=== PATIENT | female | born 1960 | race Caucasian/White ===

== ENCOUNTER 2024-12-11 14:09 | Emergency (ER) | payer OTHER ==
[~2024-12-11] VITALS: Ht 162.6 cm; Wt 64.0 kg
[2024-12-11 14:18] VITALS: TEMP 98.7
--- NOTE | 2024-12-11 14:34 | Physician Documentation ---
History of Present Illness ~ Chief Complaint: Stroke Alert Stated Complaint: NUMBNESS Time Seen by MD: 14:32 HPI 64-year-old female, history of epilepsy, who presents with left-sided numbness and dizziness She tells me that at around 11:00 a.m., approximately 3-1/2 hours ago, she started to feel lightheaded. She thought maybe her sugar level was low or she needed to eat something. However, she then developed left-sided numbness at around 12:00 a.m., 2-1/2 hours ago. She reports feeling numbness in the left side of her face as well as her left arm. She denies any left side leg numbness She tells me that her legs felt unsteady, but denies any significant focal weakness. She denies having a headache. She denies visual changes. No significant difficulty speaking. No fevers or recent infectious symptoms. Medication Reconciliation Allergies: Coded Allergies: No Known Allergies (Unverified , 12/11/24) Review of Systems Constitutional: Denies: fever Neurological: Reports: left sided numbness Physical Exam Vital Signs: Temperature: 98.7, Source: Temporal, Heart Rate: 72, Respiratory Rate: 16, BP: 172/86, Pulse Oximetry: 99, Weight: 64.040 Oxygen Flow Rate: 0 General Appearance General: This is a pleasant and overall well-appearing middle-aged woman, at bedside HEENT: Atraumatic, oropharynx appears moist Heart: Regular rate and rhythm, normal-appearing peripheral perfusion Lungs: normal work of breathing, normal oxygen saturation on room air Neuro: Alert and oriented, speaks slowly but clearly. No facial droop. She does have diminished sensation on the left side of her face compared to the right. Extraocular movements are intact. Grossly normal strength in all 4 extremities. She does report slightly diminished sensation in the left arm and hand. Normal sensation to the left leg. Psychiatric: Calm and cooperative with exam Progress Results/Orders Results/Orders Orders - SANDRA MADDEN MD Monitor (12/11/24 14:28) 2 Large Bore Ivs (12/11/24 14:28) Chest,Single View (12/11/24 14:28) Accucheck (12/11/24 14:28) Ct Stroke Alert (12/11/24 14:28) [place] Prov.Neuro Consult (12/11/24 14:28) Cta Neck/Head (12/11/24 14:40) Completed Orders - SANDRA MADDEN MD Cbc/Diff (12/11/24 14:28) Electrocardiogram (12/11/24 14:28) Chest,Single View (12/11/24 14:28) Ct Stroke Alert (12/11/24 14:28) BMP (12/11/24 14:28) PTT (12/11/24 14:28) Pt Inr (12/11/24 14:28) Iohexol 350mg/Ml 100ml (Omnipaque 350mg/ (12/11/24 14:34) Cta Neck/Head (12/11/24 14:40) Urinalysis, Cult If Indicated (12/11/24 14:55) Vital Signs 12/11/24 12/11/24 12/11/24 12/11/24 14:18 14:37 15:00 15:08 Temp 98.7 Pulse 72 64 56 63 Resp 16 14 20 17 B/P (MAP) 172/86 156/84 (108) 156/74 154/73 (100) Pulse Ox 99 97 99 99 O2 Flow Rate 0 0 12/11/24 12/11/24 12/11/24 12/11/24 15:15 15:20 15:29 16:00 Pulse 58 59 55 Resp 15 11 12 B/P (MAP) 148/79 146/73 142/80 (100) Pulse Ox 99 99 100 12/11/24 12/11/24 16:45 17:10 Pulse 57 57 Resp 12 11 B/P (MAP) 152/78 (102) 145/75 Pulse Ox 97 97 Laboratory Tests Test 12/11/24 14:27 12/11/24 14:55 12/11/24 16:15 Glucometer 102 White Blood Count 8.7 Red Blood Count 4.43 Hemoglobin 14.1 Hematocrit 41.3 Mean Corpuscular Volume 93.2 Mean Corpuscular Hemoglobin 31.7 H Mean Corpuscular Hemoglobin Concent 34.0 Red Cell Distribution Width 12.9 Platelet Count 240 Mean Platelet Volume 7.9 Neutrophils (%) (Auto) 68.9 Lymphocytes (%) (Auto) 23.9 Monocytes (%) (Auto) 5.8 Eosinophils (%) (Auto) 0.7 Basophils (%) (Auto) 0.7 Neutrophils # (Auto) 6.0 Lymphocytes # (Auto) 2.1 Monocytes # (Auto) 0.5 Eosinophils # (Auto) 0.1 Basophils # (Auto) 0.1 CBC Comment Prothrombin Time 9.8 INR International Normalized Ratio 1.0 Activated Partial Thromboplast Time 27 Coagulation Comments Sodium Level 135 Potassium Level 4.3 Chloride Level 101 Carbon Dioxide Level 26.3 Anion Gap 8 Blood Urea Nitrogen 15 Creatinine 0.98 H Estimated GFR/1.73 m2 57 BUN/Creatinine Ratio 15.3 Glucose Level 101 Calcium Level 9.1 Albumin 3.9 Chemistry Comments Urine Specimen Description Voided Urine Color Straw Urine Clarity Clear Urine pH 7.0 Urine Specific [place] <=1.005 Urine Protein Negative Urine Glucose (UA) Negative Urine Ketones Negative Urine Occult Blood Negative Urine Nitrite Negative Urine Bilirubin Negative Urine Urobilinogen 0.2 Urine Leukocyte Esterase Negative Urine Culture Indicated Not ind Volume Urine Centrifuged 10 ml Urine Comment EKG/XRAY/CT/US/VASC/MRI EKG : Additional Comment I personally interpreted the EKG and this shows: Sinus rhythm, rate 58, QTC 415, unremarkable EKG Chest X-Ray : Additional Comments I personally interpreted the x-ray, and it shows: No focal consolidation, pulmonary edema, or mediastinal widening CT : Impression I personally interpreted the CT scan of the head: This shows no acute hemorrhage or mass CTA head and neck: Radiology report shows no large vessel occlusion or aneurysm Consults/PCP Consults/PCP : Additional Comment Consult: Stroke neurology was emergently consulted after my initial evaluation of the patient. They did evaluate the patient and I spoke to Dr. Medrano. He feels this is unlikely to be a stroke, recommends a normal workup, and if she continues to have symptoms with a negative workup then admission for MRI Medical Decision Making Additional Information The patient presents with symptoms of dizziness and numbness. She I had a full stroke workup that did not show any obvious evidence of a stroke, large vessel occlusion, or other abnormality. No evidence of infection or UTI. Stroke Neurology was consulted and did not recommend admission for an MRI if her symptoms improved, given that her symptoms seemed less consistent with a stroke. On re-evaluation, she was feeling much improved. I had a long discussion with the patient and her . She does report having a lot of stress recently and wonders if this could be a stress reaction manifestation. This definitely seems possible. Stroke or TIA seems less likely. Given her significant improvement, it seems reasonable for her to be discharged home. She was given home care instructions, outpatient follow up, and strict return precautions Departure Time of Disposition: 16:50 Disposition: 01 HOME / SELF CARE / HOMELESS Impression: Primary Impression: Abnormal feeling Condition: Improved Discharge Instructions: Managing Stress, Adult Referrals: NO PRIMARY CARE PROVIDER (PCP) Education Educated: Patient, Family Educated regarding: diagnosis, treatment, need for follow up Critical Care Note Critical Care Note Critical Care Note The very real possibility of a deterioration of this patient's condition required the highest level of my preparedness for sudden, emergent intervention. I provided critical care services, which included medication orders, frequent reevaluations of the patient's condition and response to treatment, ordering and reviewing test results, and discussing the case with various consultants. Excludes time spent performing separately billable procedures. The critical care time associated with the care of the patient was 45 minutes in the management of possible acute stroke within the window for thrombolytics Signature Scribe Signature: toby Attestation: SANDRA Campbell MD Dec 11, 2024 14:34
--- NOTE | 2024-12-11 14:51 | RADIOLOGY REPORT ---
Exam: CT CT STROKE ALERT History: Stroke Alert Technique: [address] images through the posterior fossa and the supratentorial compart ment were acquired without contrast and imaged using soft tissue and bone algorithms. RADIATION DOSE: DLP 931.44 mGy.cm; CTDI vol 53.62 mGy. Comparison: None Findings: There is no evidence of an intracranial hemorrhage, acute large vessel infarct, mass effect, or midli ne shift. There is no significant cerebral atrophy. No significant calcification of the carotid siphons. The calvarium, orbits, paranasal sinuses, sella, middle ears, and mastoids are unremarkable. The superficial soft tissues are within normal limits. Impression: 1. No acute intracranial abnormality.
--- NOTE | 2024-12-11 14:56 | CONSULTATION REPORT ---
History of Present Illness Providers to CC ~ Allergies: Coded Allergies: No Known Allergies (Unverified , 12/11/24) Physical Exam Last Vital Signs Recorded: Temperature: 98.7, Source: Temporal, Heart Rate: 64, Respiratory Rate: 14, BP: 156/84, Pulse Oximetry: 97, Weight: 64.040 Assessment/Plan Additional Plan [place] Neuro Note # Demographics Consult Type: Acute Stroke Level 1 (0-4.5 hrs) Patient Location: Emergency Room First Name: JAIDEN Last Name: PRISCILLA Date of : 1960 Age: 64 Gender: Female Facility: [facility] Time of Initial Page (): 12/11/2024 14:40 First Contact with Site ( Time): 12/11/2024 14:41 # HPI Chief Complaint: - dizziness History: 64 y/o woman presents with dizziness, light-headed. Similar symptoms Monday at work. Today her lips and arms were tingling and numb. Also couldn't think straight. Then started feeling like she was going to pass out. Took her blood pressure which was normal. Drank Gatorade and ate protein, but still f eeling weird. No clear provoking factor but did sleep longer than normal. Onset around 11. # Scores Time of exam and NIHSS (): 12/11/2024 14:46 Level of Consciousness 1a: [0] = Alert; keenly responsive LOC Questions 1b: [0] = Answers both questions correctly LOC Commands 1c: [0] = Performs both tasks correctly Best Gaze 2: [0] = Normal Visual 3: [0] = No visual loss Facial Palsy 4: [0] = Normal symmetrical movements Motor Arm Left 5a: [0] = No drift Motor Arm Right 5b: [0] = No drift Motor Leg Left 6a: [0] = No drift Motor Leg Right 6b: [0] = No drift Limb Ataxia 7: [0] = Absent Sensory 8: [0] = Normal Best Language 9: [0] = No aphasia Dysarthria 10: [0] = Normal Extinction and Inattention 11: [0] = No abnormality NIHSS Total: 0 # PMH-FH-SH Past Medical History: - seizure Medications: Lamcital ER 200 at bedtimes # Data Head CT: - no bleed - preliminarily reviewed by me, please refer to radiology read for official reading # Assessment Impression: - Other dizziness # Plan Thrombolytic/Intervention: NOT IV Thrombolysis or IA Intervention candidate Thrombolytic Exclusion (< 3 hour window): - non-disabling deficit Intraarterial Exclusion: - clinical exam not consistent with presence of large vessel occlusion (LVO), can reconsider if LVO found on vascular imaging Other: - If patient has any neurological deterioration please call me back immediately - I have discussed my recommendations with the referring provider Additional Recommendations: infectious/metabolic/cardiac per ED/Primary. Can consider brain MRI if symptoms of left sided numbness (reported to ED physician) persist. # Logistics Attestation of consult completion: The patient is located at: [facility]. Facility staff participated in the visit. I performed this telemedicine visit from my offsite office utilizing interactive 2 way audio and visual telecommunication technology at the request of the onsite emergency room provider. Total time spent in telemedicine encounter: I spent 14 minutes reviewing cl inical data and/or imaging, obtaining history, examining the patient, communicating with the onsite care team, and in preparation of this report. # Demographics First Name: JAIDEN Last Name: PRISCILLA Facility: [facility] YINKA NUNO MD Dec 11, 2024 14:56
--- NOTE | 2024-12-11 15:00 | RADIOLOGY REPORT ---
EXAM: DI CHEST,SINGLE VIEW HISTORY: Stroke Alert COMPARISON: None TECHNIQUE: Portable upright AP view of the chest was performed. FINDINGS: No pneumothorax, consolidative infiltrates, or pulmonary edema. The heart is not enlarged. There is m ild thoracic dextroscoliosis. There is an ovoid calcification overlying the left glenoid. IMPRESSION: 1. No acute intrathoracic process. 2. Ovoid calcification overlies the left glenoid, and may represent an intra-articular calcific loose body.
[2024-12-11 15:01] LABS: MEAN PLATELET VOLUME 7.9 FL (7.4-10.4); RED CELL DISTRIBUTION WIDTH 12.9 % (11.5-14.5)
--- NOTE | 2024-12-11 15:09 | ELECTROCARDIOGRAPH REPORT ---
[facility] Test Date: 2024-12-11 Test Time: 15:07:33 Pat Name: JAIDEN WELLS Department: [facility]-ER Patient ID: [id number] Room: Gender: F [employer] Education [employer] Professional: : 1960 Requested By: SANDRA MADDEN Order Number: [id number] Reading MD: Measurements Intervals [place] Rate: 58 P: 64 OK: 181 QRS: 41 QRSD: 104 T: 40 QT: 422 QTc: 415 Interpretive Statements Sinus bradycardia Probable left atrial enlargement Please click the below link to view image of tracing.
[2024-12-11 15:16] LABS: APTT 27 SECONDS (22-32); INR 1.0 INR
[2024-12-11 15:19] LABS: CREATININE 0.98 MG/DL (0.40-0.90); TOTAL CARBON DIOXIDE 26.3 MMOL/L (24-32); eCRCL 50 ML/MIN; eGFR 57 ML/MIN
--- NOTE | 2024-12-11 15:24 | RADIOLOGY REPORT ---
EXAM: CT CTA NECK/HEAD INDICATION: left sided numbness EXAM DATE: 12/11/2024 02:53 PM COMPARISON: None TECHNIQUE: A noncontrast dataset was obtained. Subsequently, a volumetric data acquisition of the hea d and neck was obtained during the arterial phase of enhancement. A total of 60 mL of Omnipaque 350 w as administered intravenously. One or more of the following radiation dose reduction techniques were used for this examination: automated exposure control, adjustment of the mA and/or kV according to pa tient size, use of iterative reconstruction technique. 3-D postprocessing is performed by technologist including MIP imaging Determination of the degree of stenosis in the internal carotid arteries is obtained using measureme nts of distal internal carotid diameter (directly or indirectly) as the denominator for stenosis chevy urement. The method utilized is similar to that utilized in the [place] Symptomatic Carotid E ndarterectomy Trial (NASCET) method. If the degree of stenosis is greater than 30%, the actual percen tage stenosis is given in the body of the report. Radiation Dose Information: CT Dose: CTDI volume is 30.6 mGy. Dose-length product is 446.63 mGy*cm Findings: Neck: The aortic arch and great vessels are within normal limits. The common carotid arteri es, carotid bifurcation, internal and external carotid arteries are within normal limits. Vertebral a rteries are within normal limits, with left dominant. No evidence of aneurysm, dissection, or stenosi s. The pharynx and upper airway appear normal with no evidence of stricture or focal lesion. No evidence of cervical lymphadenopathy. The thyroid, submandibular, and parotid glands appear normal. Osseous structures and lung apices appear unremarkable. Brain: Intracranial Anterior Circulation: The RIGHT anterior circulation including the right internal carotid artery, middle cerebral artery, and anterior cerebral artery demonstrates no abnormality. Th e LEFT anterior circulation including the left internal carotid artery, middle cerebral artery, and a nterior cerebral artery demonstrates no abnormality. The anterior communicating artery is unremarkabl e. No posterior communicating arteries are identified. Vertebrobasilar Circulation: The basilar artery is unremarkable. The RIGHT posterior cerebral artery, superior cerebellar artery, and posterior inferior cerebellar artery demonstrate no abnormality. The LEFT posterior cerebral artery, superior cerebellar artery, and posterior inferior cerebellar artery demonstrate no abnormality. Other: The visualized dural sinuses and intradural venous system are unremarkable. No evidence of int racranial mass, mass effect, or abnormal enhancement. The skull base, calvaria, orbits, and overlying soft tissues are intact. The remaining paranasal sinuses, mastoid air cells, and middle ear cavities are clear and well aerated. Partial opacification of bilateral maxillary sinuses, [id number]. Impression: 1. No evidence of stenosis, aneurysm, or dissection.
[2024-12-11 16:38] LABS: LEUKOCYTE ESTERASE ,URINE NEGATIVE (Neg); NITRITES, URINE NEGATIVE (Neg); OCCULT BLOOD,URINE NEGATIVE (Neg)
[2024-12-11 16:41] LABS: UA COLLECTION TYPE VOIDED
[2024-12-11 17:10] VITALS: BP 145/75; PULSE 57; RESP 11; O2SAT 97
== END 2024-12-11 17:18 | disposition home or self-care (01) ==
LOC: ER 14:10
DX: R20.2 Paresthesia of skin (principal); R42 Dizziness and giddiness; R00.1 Bradycardia, unspecified; G40.909 Epilepsy, unspecified, not intractable, without status epilepticus
CPT/HCPCS: 36415; 70450; 70496; 70498; 71045; 80048; 81003; 82948; 85025; 85610; 85730; 93005; 99285; Q9967